=== PATIENT | female | born 2000 | race Caucasian/White ===

== ENCOUNTER 2021-01-28 23:26 | Emergency (ER) | payer OTHER ==
[~2021-01-28 23:26] MED LIST: MOTRIN600 MG PO
[2021-01-29 00:04] LABS: BASOPHIL 0.5 % (0-2); EOSINOPHIL 3.4 % (0-5); HCT 40.8 % (37.0-47.0); HGB 14.1 g/dl (12.5-16.0); LYMPHOCYTE 48.6 % (15-48); MCHC 34.6 g/dL (32.0-36.0); MCV 89.7 fL (78.0-100.0); MONOCYTE 7.1 % (0-12); NEUTROPHIL 40.3 % (41-80); NRBC 0; PLT 223 K/uL (150-400); RBC 4.55 M/uL (4.20-5.40); RDW 11.9 % (11.5-14.0); WBC 7.7 K/uL (4.0-10.5)
[2021-01-29 00:09] LABS: INR 1.15 (0.9-1.2); PTT 26.9 SECONDS (22.2-34.7)
[2021-01-29 00:39] LABS: ALBUMIN 4.3 g/dL (3.4-5.0); BILIRUBIN - TOTAL 0.7 mg/dL (0.2-1.0); CREATININE 0.75 mg/dL (0.51-0.95); GLOBULIN (CALCULATION) 3.3 g/dL; POTASSIUM 3.4 mmol/L (3.5-5.1); TOTAL PROTEIN 7.6 g/dL (6.4-8.2)
== END 2021-01-29 01:17 | disposition home or self-care (01) ==
LOC: FER 23:26
PROVIDERS: Emergency Medicine
DX: R07.89 Other chest pain (principal); F17.200 Nicotine dependence, unspecified, uncomplicated
CPT/HCPCS: 36415; 71045; 80053; 84484; 85025; 85610; 85730; 93005

== ENCOUNTER 2022-03-15 08:49 | Inpatient (IN) | payer OTHER ==
[~2022-03-15] VITALS: Ht 162.6 cm; Wt 58.1 kg
[2022-03-15 10:07] LABS: HCT 34.2 % (37.0-47.0); HGB 11.5 g/dl (12.5-16.0); MCH 30.9 pg (25.0-31.0); MCHC 33.6 g/dL (32.0-36.0); MCV 91.9 fL (78.0-100.0); MPV 12.1 fL (6.0-9.5); RBC 3.72 M/uL (4.20-5.40); RDW 12.5 % (11.5-14.0); WBC 9.3 K/uL (4.0-10.5)
[2022-03-15 12:03] LABS: BILIRUBIN NEGATIVE (NEGATIVE); BLOOD NEGATIVE Ery/uL (NEGATIVE); CLARITY CLEAR (CLEAR); COLOR YELLOW (YELLOW); GLUCOSE (U) NORMAL (NORMAL); LEUKOCYTES NEGATIVE Leu/uL (NEGATIVE); NITRITE NEGATIVE (NEGATIVE); PROTEIN NEGATIVE (NEGATIVE); SPECIFIC GRAVITY 1.015 (1.001-1.030); UROBILINOGEN 0.2 mg/dL (0.2-1.0)
[2022-03-16 07:53] LABS: HCT 32.4 % (37.0-47.0)
== END 2022-03-17 14:41 | disposition home or self-care (01) | DRG 788 ==
LOC: FOD 08:49 → FOB 08:50 → FOD 09:22 → FOB 09:23 → FOD 09:23 → FOB 03-17 14:41
PROVIDERS: ADMIT Obstetrics & Gynecology
PROC: 10D00Z1 Extraction of Products of Conception, Low, Open Approach (ICD-10-PCS; principal; 2022-03-15 10:30)
DX: O32.1XX0 Maternal care for breech presentation, not applicable or unspecified (principal); O36.5930 Maternal care for other known or suspected poor fetal growth, third trimester, not applicable or unspecified; Z37.0 Single live birth; Z3A.37 37 weeks gestation of pregnancy; O34.211 Maternal care for low transverse scar from previous cesarean delivery; Z28.82 Immunization not carried out because of caregiver refusal; O90.81 Anemia of the puerperium
CPT/HCPCS: 36415; 81003; 85014; 85018; 86850; 86900; 86901; J0690; J1885; J2274; J2405; J7120